=== PATIENT | male | born 1940 ===

== ENCOUNTER 2017-12-11 19:10 | Emergency (ER) | payer MEDICARE ==
[2017-12-11 21:42] LABS: BASO % 0.8 % (0.0-2.0); EOS # 0.4 K/uL (0.0-0.7); EOS % 4.9 % (0.0-4.0); HEMOGLOBIN 14.7 g/dL (12.0-18.0); LYMPH # 1.9 K/uL (1.0-4.3); LYMPH % 21.1 % (20.0-40.0); MEAN CELL VOLUME 84.4 fl (80.0-94.0); MEAN CORPUSCULAR HEMOGLOBIN 29.8 pg (27.0-31.0); MEAN CORPUSCULAR HGB CONC 35.3 g/dL (33.0-37.0); MONO # 0.7 K/uL (0.0-0.8); MONO % 8.4 % (0.0-10.0); NEUT # 5.7 K/uL (1.8-7.0); NEUT % 64.8 % (50.0-75.0); NRBC % 0.1 % (0.0-0.0); RBC 4.93 Mil/uL (4.40-5.90); RED CELL DISTRIBUTION WIDTH 14.1 % (11.5-14.5); WHITE BLOOD COUNT 8.8 K/uL (4.8-10.8)
[2017-12-11 21:43] LABS: BASO # 0.1 K/uL (0.0-0.2)
[2017-12-11 21:51] LABS: BLOOD UREA NITROGEN 13 mg/dl (9-20); CALCIUM 9.3 mg/dL (8.4-10.2); GFR AFRICAN-AMERICAN > 60; GFR NON-AFRICAN AMERICAN > 60
--- NOTE | 2017-12-11 22:00 | ED PDOC ---
HPI: Psych/Substance Abuse Time Seen by Provider: 12/11/17 19:43 Chief Complaint (Nursing): Psychiatric Evaluation ED Caveat: Dementia History Per: Patient Onset/Duration Of Symptoms: Days Current Symptoms Are (Timing): Still Present Associated Symptoms: Anger, Agitation Additional Complaint(s): Hx of dementia, CAD p/w aggressive behavior at home, according to grand-daughter , patient has been getting increasingly more aggressive at home with family members, attempted to strike his with a cane recently. Currently patient denies all complaints, states he feels well. Past Medical History Reviewed: Historical Data, Nursing Documentation Vital Signs: Last Vital Signs Temp 98.3 F 12/11/17 19:30 Pulse 54 L 12/11/17 19:30 Resp 19 12/11/17 19:30 BP 121/69 12/11/17 19:30 Pulse Ox 96 12/11/17 19:30 - Medical History PMH: Alzheimer's Disease, Dementia, Depression, HTN, Hypothyroidism - Surgical History Surgical History: Coronary Stent - Family History Family History: States: Unknown Family Hx - Allergies Allergies/Adverse Reactions: Allergies Allergy/AdvReac Type Severity Reaction Status Date / Time No Known Allergies Allergy Verified 12/11/17 19:33 Review of Systems Review Of Systems: ROS cannot be obtained secondary to pt's inabilty to answer questions. Physical Exam - Reviewed Nursing Documentation Reviewed: Yes Vital Signs Reviewed: Yes - Physical Exam Appears: Positive for: Well, Non-toxic, No Acute Distress Head Exam: Positive for: ATRAUMATIC, NORMAL INSPECTION, NORMOCEPHALIC Skin: Positive for: Normal Color, Warm, DRY Eye Exam: Positive for: EOMI, Normal appearance, PERRL ENT: Positive for: Normal ENT Inspection Neck: Positive for: Normal, Painless ROM Cardiovascular/Chest: Positive for: Regular Rate, Rhythm Respiratory: Positive for: CNT, Normal Breath Sounds Gastrointestinal/Abdominal: Positive for: Normal Exam, Bowel Sounds, Soft Back: Positive for: Normal Inspection Extremity: Positive for: Normal ROM Neurologic/Psych: Positive for: Alert, aquatic director II-XII, Oriented, Mood/Affect (Calm, cooperative). Negative for: Motor/Sensory Deficits, Aphasia - Laboratory Results Result Diagrams: 12/11/17 21:37 12/11/17 21:37 - ECG O2 Sat by Pulse Oximetry: 96 Medical Decision Making Medical Decision MakinPM A/P: Hx of Dementia, CAD p/w agitation/aggressive behavior at home -patient likely suffering from advanced dementia and behavior disturbance 2/2 to that -will get medical clearance and then Crisis Eval 1200AM Patient cleared by crisis, family will followup as outpatient. Medically stable. Disposition - Clinical Impression Clinical Impression: Dementia - Disposition Referrals: [facility] [Outside] Disposition Time: 00:49 Condition: STABLE Instructions: Dementia (Including Alzheimer Disease) Forms: [employer] (Arabic)
[2017-12-11] MEDS ORDERED: Risperidone M tab 1 MG PO ONE (23:52)
[2017-12-11] MEDS ORDERED: Risperidone M tab 0.5MG PO STA (23:52)
--- NOTE | 2017-12-12 09:18 | RAD ---
HISTORY: agitation COMPARISON: No prior. TECHNIQUE: Chest PA and lateral FINDINGS: LUNGS: No active pulmonary disease. PLEURA: No significant pleural effusion identified. No pneumothorax apparent. CARDIOVASCULAR: Normal. OSSEOUS STRUCTURES: No significant abnormalities. VISUALIZED UPPER ABDOMEN: Normal. OTHER FINDINGS: None. IMPRESSION: No active disease.
[2017-12-12 11:38] VITALS: BP 138/70; PULSE 69; RESP 16; TEMP 98.1; O2SAT 95
--- NOTE | 2017-12-12 18:35 | CARD ---
APPROVED REPORT EKG Measurement Heart [id number] <Conclusion> Sinus bradycardia Septal infarct, age undetermined T wave abnormality, consider lateral ischemia Abnormal ECG
== END 2017-12-12 01:07 | disposition home or self-care (01) ==
LOC: H.ER 19:10
DX: F02.81 Dementia in other diseases classified elsewhere, unspecified severity, with behavioral disturbance (principal); E03.9 Hypothyroidism, unspecified; G30.9 Alzheimer's disease, unspecified; I10 Essential (primary) hypertension; I25.10 Atherosclerotic heart disease of native coronary artery without angina pectoris; Z95.5 Presence of coronary angioplasty implant and graft
CPT/HCPCS: 71046; 80048; 85025; 93005; 99283; G0480

== ENCOUNTER 2017-12-14 19:48 | Inpatient (IN) | payer MEDICARE ==
--- NOTE | 2017-12-14 20:53 | ED PDOC ---
HPI: Psych/Substance Abuse Time Seen by Provider: 12/14/17 20:02 Chief Complaint (Nursing): Psychiatric Evaluation Chief Complaint (Provider): Aggressive Behaviour History Per: Family History/Exam Limitations: no limitations Suicide/Self Injury Attempted (Context): None Modifying Factor(s): None Additional Complaint(s): 77 year old male with a medical history of dementia is brought into the emergency department by his family for aggressive behavior. Patient history obtained from doctor and due to patient's history of dementia. reports that over the past month the patient has become increasingly aggressive with multiple episodes of aggression at home. She further states that he has also become violent with his cane and has attempted to scratch at family members. Per , the patient was seen by his private psychiatrist December 02 and was told that he should present to the emergency department for recommendation for psychiatric admission. Patient was seen here in [place] ED 3 days ago had an evaluation performed but could not be admitted because his family did not have the power of insurance defense attorney and her could not sign himself in for admission. Since then family has obtained power of insurance defense attorney. The states that since his last visit to the emergency room he has had multiple episodes of aggression and his behaviour has continued to get worse. PMD: Dr. Manny Weber Past Medical History Reviewed: Historical Data, Nursing Documentation, Vital Signs Vital Signs: Last Vital Signs Temp 97.6 F 12/14/17 19:55 Pulse 54 L 12/14/17 19:55 Resp 18 12/14/17 19:55 BP 158/103 H 12/14/17 19:55 Pulse Ox 99 12/14/17 19:55 - Medical History PMH: Alzheimer's Disease, Dementia, Depression, HTN, Hypothyroidism Denies: Diabetes, Hepatitis, HIV, Seizures, Sexually Transmitted Disease - Surgical History Surgical History: Coronary Stent - Family History Family History: States: Unknown Family Hx - Home Medications Home Medications: Ambulatory Orders Medication Instructions Recorded ALPRAZolam [Xanax] 0.25 mg PO HS PRN 12/14/17 Aspirin [Ecotrin] 325 mg PO DAILY 12/14/17 Atorvastatin [Lipitor] 80 mg PO DAILY 12/14/17 Cholecalciferol [Vitamin D] 2,000 iu PO DAILY 12/14/17 Clopidogrel [Plavix] 75 mg PO DAILY 12/14/17 Dicyclomine [Dicyclomine HCl] 10 mg PO TID 12/14/17 Donepezil [Aricept] 10 mg PO DAILY 12/14/17 Levothyroxine [Synthroid] 0.05 mg PO DAILY 12/14/17 Lisinopril/Hydrochlorothiazide 1 tab PO DAILY 12/14/17 [Lisinopril-Hctz 10-12.5 mg Tab] Metoprolol Tartrate [Lopressor] 25 mg PO BID 12/14/17 Risperidone [Risperdal M-TAB] 0.5 mg PO HS PRN 12/14/17 - Allergies Allergies/Adverse Reactions: Allergies Allergy/AdvReac Type Severity Reaction Status Date / Time No Known Allergies Allergy Verified 12/11/17 19:33 Review of Systems ROS Statement: Except As Marked, All Systems Reviewed And Found Negative Neurological: Positive for: Other (Aggressive Behaviour) Physical Exam - Reviewed Nursing Documentation Reviewed: Yes Vital Signs Reviewed: Yes - Physical Exam Appears: Positive for: Well, No Acute Distress Head Exam: Positive for: ATRAUMATIC, NORMOCEPHALIC Skin: Positive for: Warm, Dry Eye Exam: Positive for: EOMI, PERRL ENT: Positive for: Pharynx Is (clear) Neck: Positive for: Painless ROM, Supple Cardiovascular/Chest: Positive for: Regular Rate, Rhythm. Negative for: Murmur Respiratory: Positive for: Normal Breath Sounds. Negative for: Wheezing Gastrointestinal/Abdominal: Positive for: Soft. Negative for: Tenderness Back: Positive for: Normal Inspection. Negative for: Muscle Spasm Extremity: Positive for: Normal ROM. Negative for: Deformity Lymphatic: Negative for: Adenopathy Neurologic/Psych: Positive for: Oriented (x1), Mood/Affect (flat affect). Negative for: Motor/Sensory Deficits - Laboratory Results Result Diagrams: 12/14/17 22:10 12/14/17 22:10 - ECG O2 Sat by Pulse Oximetry: 99 (RA) Pulse Ox Interpretation: Normal Medical Decision Making Medical Decision Makin Initial Impression 77 year old male presenting with dementia with aggressive behaviour Initial Plan: * Crisis Evaluation * Reevaluation * * Per CHANTEL Luong [facility] * Medically stable for psychiatric admission Documented by Carli Dia acting as a scribe for Sada Shea MD. All medical record entries made by the Scribe were at my direction and personally dictated by me. I have reviewed the chart and agree that the record accurately reflects my personal performance of the history, physical exam, medical decision making, and the department course for this patient. I have also personally directed, reviewed, and agree with the discharge instructions and disposition. Disposition - Clinical Impression Clinical Impression: Dementia - Disposition Disposition Time: 22:00 Condition: STABLE - Pt Status Changed To: Hospital Disposition Of: Inpatient - Admit Certification Admit to Inpatient:: After my assessment, the patient will require hospitalization for at least two midnights. This is because of the severity of symptoms shown, intensity of services needed, and/or the medical risk in this patient being treated as an outpatient. - POA Present On Arrival: None
[2017-12-14 22:24] LABS: BASO # 0.1 K/uL (0.0-0.2); BASO % 0.7 % (0.0-2.0); EOS # 0.8 K/uL (0.0-0.7); EOS % 9.5 % (0.0-4.0); HEMOGLOBIN 14.6 g/dL (12.0-18.0); LYMPH # 1.6 K/uL (1.0-4.3); LYMPH % 18.7 % (20.0-40.0); MEAN CELL VOLUME 84.1 fl (80.0-94.0); MEAN CORPUSCULAR HEMOGLOBIN 29.3 pg (27.0-31.0); MEAN CORPUSCULAR HGB CONC 34.9 g/dL (33.0-37.0); MEAN PLATELET VOLUME 7.6 fl (7.2-11.7); MONO # 0.7 K/uL (0.0-0.8); MONO % 8.4 % (0.0-10.0); NEUT # 5.3 K/uL (1.8-7.0); NEUT % 62.7 % (50.0-75.0); NRBC % 0.1 % (0.0-0.0); RBC 4.96 Mil/uL (4.40-5.90); RED CELL DISTRIBUTION WIDTH 13.9 % (11.5-14.5); WHITE BLOOD COUNT 8.5 K/uL (4.8-10.8)
[2017-12-14 22:32] LABS: GFR AFRICAN-AMERICAN > 60; GFR NON-AFRICAN AMERICAN > 60
[2017-12-14 23:25] LABS: BLOOD UREA NITROGEN 13 mg/dl (9-20)
[2017-12-15 00:26] VITALS: O2SAT 96
[2017-12-15] MEDS ORDERED: Magnesium Hydroxide Susp 30 ml UD PO PRN (00:49)
[2017-12-15] MEDS ORDERED: Bismuth Subsalicylate 262 mg/15 ml Sus (240 ml) PO PRN (00:49)
[2017-12-15] MEDS ORDERED: Alum-Mag Hydrox-Simethicone Susp (30 mL) PO PRN (00:49)
--- NOTE | 2017-12-15 01:47 | PCM.BM ---
<Zelalem Cotto - Last Filed: 12/15/17 01:45> Treatment Plan Problems - Problems identified on initial assessmt Anger, Aggression and Violent Behaviors Date Initiated: 12/15/17 Time Initiated: 01:46 Assessment reference: NA Status: Active Treatment assets and liabiliti Patient Assests: good support system, negotiates basic needs Patient Liabilities: medical problems, imparied memory - Milieu Protocol Maintain good personal hygiene: every shift Encourage regular showers, every shift Remind patient to perform daily oral care, every shift Assist patient to perform ADL's Maintain personal safety: daily Educate patient to report safety concerns to staff, daily Monitor environment for contraband/sharps Medication safety: Monitor for expected outcome, potential side effects: daily, Assess barriers to learning: daily, Assess readiness for medication education: daily <Homa Aguilera - Last Filed: 12/16/17 09:38> - Diagnosis (1) Dementia with behavioral disturbance Status: Acute Interventions: Medication management, Individual and group therapy, Psychoeducation 12/16/17 09:38 <Bhargavi Amado - Last Filed: 12/16/17 12:35> Family Contact Family contact: Patient agrees to contact, Telephone contact initiated by staff , Family contacted unit to give information Family contact name: Gale Russ - spouse Family contacted how many times per week?: 2 Family contact comment: [phone] - Outside Agency Dr. Rebecca Crouch MD Care involvment: Information-sharing Agency contact number: - Goals for Treatment Patient goals for treatment: Pt to be encouraged to attend activity and clinical groups 3-5x per week to identify at least 2 contributing factors to increased agitation, irritability, and aggression. Psycho-education to be provided to patient/family regarding benefits of medications and treatment adherence. Pt to be encouraged to participate in group milieu to develop effective coping skills to reduce aggression and reduce psychiatric hospitalizations. Coordinate discharge resource needs by providing referral for psychiatric treatment follow up in the community. Discharge/Continuing Care - Education Needs Education Needs: Family Medication, Family Diagnosis/Disease Process, Family Coping Skills, Family Placement options, Family Community resources, Family Activities of Daily Living, Family Uses of Medical Equipment, Family Health Practices/Safety, Family Personal Hygiene/Grooming, Family Aftercare Safety Plan - Discharge Discharge Criteria: Tolerates medication w/o severe side effects, Free of agitation, Normal sleep pattern, Ability to care for self, Reduction of target symptoms Discharge to:: Home, With Family - Additional Comments 12/16/17 12:33 Pt discussed in team meeting. Pt unable to attend meeting. Pt observed to be asleep, not arousal at that time. Reason for admission reviewed and discussed. Pt's social and medical issues reviewed. Pt's medications reviewed and discussed. Pt's spouse, Gale Russ is POA. Commissions Specialist to contact spouse to review and discuss tx plan and also to obtain additional collateral information. SW to follow case. - Treatment Team Participation Discussed with Family/SO: No Was Patient/Family/SO present at Treatment Team Meeting: Yes
[2017-12-15 08:15] LABS: T4 8.64 ug/dl (5.5-11.0)
[2017-12-15 08:26] LABS: IRON 49 ug/dL (49-181)
[2017-12-15 08:35] LABS: % IRON SATURATION 18 % (20-55); TOTAL IRON BINDING CAPACITY 274 ug/dL (250-450)
[2017-12-15] MEDS: Levothyroxine 50 MCG TAB PO SCH (11:35)
[2017-12-15] MEDS: Aspirin 325 mg EC Tablets PO SCH (11:35)
[2017-12-15] MEDS: Cholecalciferol 1,000 INTLU TAB PO SCH (11:35)
[2017-12-15 13:05] LABS: FOLATE 8.1 ng/mL
--- NOTE | 2017-12-15 14:32 | PCM.PSYCH ---
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 Patient history obtained from doctor and due to patient's history of dementia. reports that over the past month the patient has become increasingly aggressive with multiple episodes of aggression at home. She further states that he has also become violent with his cane and has attempted to scratch at family members. Per , the patient was seen by his private psychiatrist December 02 and was told that he should present to the emergency department for recommendation for psychiatric admission. Patient was seen here in [place] ED 3 days ago had an evaluation performed but could not be admitted because his family did not have the power of civil rights attorney and her could not sign himself in for admission. Since then family has obtained power of civil rights attorney. The states that since his last visit to the emergency room he has had multiple episodes of aggression and his behaviour has continued to get worse. Current Medications: Active Medications Generic Name Dose Route Start Last Admin Trade Name Freq PRN Reason Stop Dose Admin Acetaminophen 650 mg 12/15/17 00:49 Tylenol 325mg Tab PO Q4 PRN Pain, moderate (4-7) Al Hydrox/Mg Hydrox/Simethicone 30 ml 12/15/17 00:49 Maalox Plus 30 Ml PO Q4 PRN Dyspepsia Aspirin 325 mg 12/15/17 11:15 12/15/17 11:35 Ecotrin PO 325 mg DAILY MARIA G Administration Atorvastatin Calcium 80 mg 12/15/17 22:00 Lipitor PO HS MARIA G Bismuth Subsalicylate 524 mg 12/15/17 00:49 Pepto-Bismol PO Q4 PRN Diarrhea Cholecalciferol 2,000 intlu 12/15/17 11:15 12/15/17 11:35 Vitamin D PO 2,000 intlu DAILY MARIA G Administration Clopidogrel Bisulfate 75 mg 12/15/17 11:15 12/15/17 11:35 Plavix PO 75 mg DAILY MARIA G Administration Donepezil HCl 10 mg 12/15/17 11:15 12/15/17 11:35 Aricept PO 10 mg DAILY MARIA G Administration Hydrochlorothiazide 12.5 mg 12/15/17 11:13 12/15/17 11:36 Microzide PO 12.5 mg DAILY MARIA G Administration Levothyroxine Sodium 50 mcg 12/15/17 11:15 12/15/17 11:35 Synthroid PO 50 mcg DAILY MARIA G Administration Lisinopril 10 mg 12/15/17 12:00 12/15/17 11:53 Zestril PO 10 mg DAILY MARIA G Administration Lorazepam 0.5 mg 12/15/17 00:49 Ativan PO 12/29/17 00:50 HS PRN Insomnia Lorazepam 0.5 mg 12/15/17 00:49 Ativan PO 12/29/17 00:50 Q6 PRN Anixety/Agitation Magnesium Hydroxide 30 ml 12/15/17 00:49 Milk Of Magnesia PO HS PRN Constipation Memantine 5 mg 12/15/17 22:00 Namenda PO HS MARIA G Metoprolol Tartrate 25 mg 12/15/17 17:00 Lopressor PO BID [facility] Risperidone 0.5 mg 12/15/17 22:00 Risperdal M-Tab PO HS [facility] Past Psychiatric History - Past Psychiatric History Nature of Treatment: seen in community History of ETOH/Drug Use: defers History of Family Illness: unknown Pertinent Medical Hx (Current Medical&Sleep Prob, Allergies): Allergies Allergy/AdvReac Type Severity Reaction Status Date / Time No Known Allergies Allergy Verified 12/11/17 19:33 ALPRAZolam [Xanax] 0.25 mg PO HS PRN 12/14/17 Aspirin [Ecotrin] 325 mg PO DAILY 12/14/17 Atorvastatin [Lipitor] 80 mg PO DAILY 12/14/17 Cholecalciferol [Vitamin D] 2,000 iu PO DAILY 12/14/17 Clopidogrel [Plavix] 75 mg PO DAILY 12/14/17 Dicyclomine [Dicyclomine HCl] 10 mg PO TID 12/14/17 Donepezil [Aricept] 10 mg PO DAILY 12/14/17 Levothyroxine [Synthroid] 0.05 mg PO DAILY 12/14/17 Lisinopril/Hydrochlorothiazide [Lisinopril-Hctz 10-12.5 mg Tab] 1 tab PO DAILY 12/14/17 Metoprolol Tartrate [Lopressor] 25 mg PO BID 12/14/17 Risperidone [Risperdal M-TAB] 0.5 mg PO HS PRN 12/14/17 Review of Systems - Psychiatric Psychiatric: Abnormal Sleep Pattern, Irritability Mental Status Examination - Affect Affect: Constricted, Depressed - Motor Activity Motor Activity: Calm, Psychomotor Retardation - Reliability in Providing Information Reliability in Providing Information: Poor, due to alteration in thoughts - Speech Additional comments: circumstantial - Cognitive Functions Orientation: Person Sensorium: Alert Attention/Concentration: Easily distracted Judgement: Imparied, as evidence by: Other - Risk Risk: Diminished functioning - Strength & Assets Inventory Strength & Assets Inventory: Family support (dementia changes in behavior) DSM 5 DX - DSM 5 DSM 5 Diagnosis: dementia with behavior changes - Recommended/Plan of Treatment Treatment Recommendations and Plan of Treatment: inpt adm per attending vital signs and clinical observation per protocol and per clinical status prns per unit protocol hospitalist consult start resperdal 0.5mg po hs fall precautions discharge planning in progress Projected ELOS: 5-7 days Prognosis: guarded Discharge Plan and Discharge Criteria: safety - Smoking Cessation Smoking Cessation Initiated: No Reason for not providing: pt defers
--- NOTE | 2017-12-15 15:01 | CARD ---
APPROVED REPORT EKG Measurement Heart [id number] <Conclusion> Sinus bradycardia with 1st degree AV block Septal infarct, age undetermined T wave abnormality, consider lateral ischemia Abnormal ECG
--- NOTE | 2017-12-15 19:56 | CP.PCM.CON ---
History of Present Illness - History of Present Illness History of Present Illness: 77 yo male with history of dementia admitted because of aggressive behaviour at home. Review of Systems - Review of Systems All systems: reviewed and no additional remarkable complaints except (aside from those mentioned above, 12 point system review were negative by me) Past Patient History - Past Social History Smoking Status: Former Smoker Alcohol: None Drugs: Denies Home Situation {Lives}: With Family - CARDIAC Hx Cardiac Disorders: Yes - PULMONARY Hx Respiratory Disorders: No - NEUROLOGICAL Hx Neurological Disorder: No - HEENT Hx HEENT Problems: No - RENAL Hx Chronic Kidney Disease: No - ENDOCRINE/METABOLIC Hx Endocrine Disorders: Yes - HEMATOLOGICAL/ONCOLOGICAL Hx Blood Disorders: No - INTEGUMENTARY Hx Dermatological Problems: No - MUSCULOSKELETAL/RHEUMATOLOGICAL Hx Musculoskeletal Disorders: No Hx Falls: Yes (2days ago) - GENITOURINARY/GYNECOLOGICAL Hx Genitourinary Disorders: No - PSYCHIATRIC Hx Substance Use: No - SURGICAL HISTORY Hx Coronary Stent: Yes - ANESTHESIA Hx Anesthesia: Yes Hx Anesthesia Reactions: No Meds Allergies/Adverse Reactions: Allergies Allergy/AdvReac Type Severity Reaction Status Date / Time No Known Allergies Allergy Verified 12/11/17 19:33 - Medications Medications: Current Medications Acetaminophen (Tylenol 325mg Tab) 650 mg PO Q4 PRN PRN Reason: Pain, moderate (4-7) Al Hydrox/Mg Hydrox/Simethicone (Maalox Plus 30 Ml) 30 ml PO Q4 PRN PRN Reason: Dyspepsia Aspirin (Ecotrin) 325 mg PO DAILY [facility] Last Admin: 12/15/17 11:35 Dose: 325 mg Atorvastatin Calcium (Lipitor) 80 mg PO [facility] Bismuth Subsalicylate (Pepto-Bismol) 524 mg PO Q4 PRN PRN Reason: Diarrhea Cholecalciferol (Vitamin D) 2,000 intlu PO DAILY [facility] Last Admin: 12/15/17 11:35 Dose: 2,000 intlu Clopidogrel Bisulfate (Plavix) 75 mg PO DAILY [facility] Last Admin: 12/15/17 11:35 Dose: 75 mg Donepezil HCl (Aricept) 10 mg PO DAILY [facility] Last Admin: 12/15/17 11:35 Dose: 10 mg Hydrochlorothiazide (Microzide) 12.5 mg PO DAILY [facility] Last Admin: 12/15/17 11:36 Dose: 12.5 mg Levothyroxine Sodium (Synthroid) 50 mcg PO DAILY [facility] Last Admin: 12/15/17 11:35 Dose: 50 mcg Lisinopril (Zestril) 10 mg PO DAILY [facility] Last Admin: 12/15/17 11:53 Dose: 10 mg Lorazepam (Ativan) 0.5 mg PO HS PRN PRN Reason: Insomnia Stop: 12/29/17 00:50 Lorazepam (Ativan) 0.5 mg PO Q6 PRN PRN Reason: Anixety/Agitation Stop: 12/29/17 00:50 Magnesium Hydroxide (Milk Of Magnesia) 30 ml PO HS PRN PRN Reason: Constipation Memantine (Namenda) 5 mg PO HS [facility] Metoprolol Tartrate (Lopressor) 25 mg PO BID [facility] Last Admin: 12/15/17 16:51 Dose: 25 mg Risperidone (Risperdal M-Tab) 0.5 mg PO [facility] Physical Exam - Constitutional Appears: Other (tremelous) - Head Exam Head Exam: ATRAUMATIC - Eye Exam Eye Exam: absent: Scleral icterus - ENT Exam ENT Exam: Mucous Membranes Moist - Neck Exam Neck exam: Negative for: Meningismus - Respiratory Exam Respiratory Exam: absent: Rales, Rhonchi, Wheezes, Respiratory Distress - Cardiovascular Exam Cardiovascular Exam: REGULAR RHYTHM, +S1, +S2 - GI/Abdominal Exam GI & Abdominal Exam: Soft. absent: Tenderness - Rectal Exam Rectal Exam: Deferred - Back Exam Back exam: NORMAL INSPECTION - Neurological Exam Neurological exam: Altered (confused) - Psychiatric Exam Psychiatric exam: Flat Affect - Skin Skin Exam: Dry, Intact Results - Vital Signs Recent Vital Signs: Last Vital Signs Temp 97.4 F L 12/15/17 16:38 Pulse 67 12/15/17 16:51 Resp 18 12/15/17 16:38 BP 164/86 H 12/15/17 16:51 Pulse Ox 96 12/15/17 00:26 - Labs Result Diagrams: 12/14/17 22:10 12/14/17 22:10 Labs: Laboratory Results - last 24 hr 12/14/17 12/14/17 12/15/17 22:10 22:10 06:00 WBC 8.5 RBC 4.96 Hgb 14.6 Hct 41.7 MCV 84.1 MCH 29.3 MCHC 34.9 RDW 13.9 Plt Count 125 L D MPV 7.6 Neut % (Auto) 62.7 Lymph % (Auto) 18.7 L [place] % (Auto) 8.4 Eos % (Auto) 9.5 H Baso % (Auto) 0.7 Neut # (Auto) 5.3 Lymph # (Auto) 1.6 [place] # (Auto) 0.7 Eos # (Auto) 0.8 H Baso # (Auto) 0.1 Sodium 131 L Potassium 4.1 Chloride 95 L Carbon Dioxide 25 Anion Gap 15 BUN 13 Creatinine 0.7 L Est GFR ( Amer) > 60 Est GFR (Non-Af Amer) > 60 Random Glucose 101 Calcium 9.0 Phosphorus 3.4 Magnesium 2.1 Iron TIBC % Saturation Ferritin 78.0 Triglycerides 91 Cholesterol 118 LDL Cholesterol Direct 40 HDL Cholesterol 51 Vitamin B12 215 L Folate 8.1 Free T4 Thyroxine (T4) 8.64 TSH 3rd Generation 1.72 1.87 12/15/17 12/15/17 06:00 06:00 WBC RBC Hgb Hct MCV MCH MCHC RDW Plt Count MPV Neut % (Auto) Lymph % (Auto) [place] % (Auto) Eos % (Auto) Baso % (Auto) Neut # (Auto) Lymph # (Auto) [place] # (Auto) Eos # (Auto) Baso # (Auto) Sodium Potassium Chloride Carbon Dioxide Anion Gap BUN Creatinine Est GFR ( Amer) Est GFR (Non-Af Amer) Random Glucose Calcium Phosphorus Magnesium Iron 49 TIBC 274 % Saturation 18 L Ferritin Triglycerides Cholesterol LDL Cholesterol Direct HDL Cholesterol Vitamin B12 Folate Free T4 1.24 Thyroxine (T4) TSH 3rd Generation Assessment & Plan (1) Aggressive behavior Status: Acute Comment: psyche is managing
[2017-12-15] MEDS: Risperidone M tab 0.5MG PO SCH (21:04)
[2017-12-15 23:02] LABS: URINE BILIRUBIN NEGATIVE (NEGATIVE); URINE BLOOD NEGATIVE (NEGATIVE); URINE CLARITY CLEAR (Clear); URINE COLOR YELLOW (YELLOW); URINE GLUCOSE (UA) 50 mg/dL (Normal); URINE LEUKOCYTE ESTERASE NEG Leu/uL (Negative); URINE PROTEIN NEGATIVE (NEGATIVE); URINE UROBILINOGEN 0.2-1.0 mg/dL (0.2-1.0)
[2017-12-16 06:58] LABS: BASO % 0.6 % (0.0-2.0); EOS # 0.5 K/uL (0.0-0.7); EOS % 7.9 % (0.0-4.0); HEMOGLOBIN 13.9 g/dL (12.0-18.0); LYMPH # 1.2 K/uL (1.0-4.3); LYMPH % 18.1 % (20.0-40.0); MEAN CELL VOLUME 83.4 fl (80.0-94.0); MEAN CORPUSCULAR HEMOGLOBIN 29.5 pg (27.0-31.0); MEAN CORPUSCULAR HGB CONC 35.4 g/dL (33.0-37.0); MEAN PLATELET VOLUME 7.3 fl (7.2-11.7); MONO # 0.6 K/uL (0.0-0.8); NEUT # 4.1 K/uL (1.8-7.0); NEUT % 63.4 % (50.0-75.0); NRBC % 0.1 % (0.0-0.0); RBC 4.72 Mil/uL (4.40-5.90); RED CELL DISTRIBUTION WIDTH 13.9 % (11.5-14.5); WHITE BLOOD COUNT 6.5 K/uL (4.8-10.8)
[2017-12-16] MEDS: Aspirin 325 mg EC Tablets PO SCH (10:47)
[2017-12-16] MEDS: Levothyroxine 50 MCG TAB PO SCH (10:51)
[2017-12-16] MEDS: Cholecalciferol 1,000 INTLU TAB PO SCH (10:52)
--- NOTE | 2017-12-16 13:07 | PCM.PYCHPN ---
Psychiatric Progress Note - Psychiatric Progress Note Patient seen today, length of contact: Patient evaluated, case discussed with team, chart reviewed Patient Chief Complaint: "I'm okay" Problems Identified/Issues Discussed: Patient continues to be disoriented as per his baseline dementia. He is currently calm and cooperative w/o any acute complaints. He denies depression/ anxiety. He is not currently violent or aggressive. As per patient's , the patient is intermittently violent and aggressive. She gave the medical team to modify the patient's medications as medically and psychiatrically indicated. Medication Change: Yes (Increase Risperdal) Medical Record Reviewed: Yes Consults ordered or reviewed: Medicine consult Mental Status Examination - Cognitive Function Orientation: Person Memory: Impaired Attention: Poor Concentration: Poor Association: Loose Fund of Knowledge: Poor Decription of patient's judgement and insights: Poor I/J due to chronic dementia - Mood Mood: Neutral - Affect Affect: Constricted - Speech Speech: Appropriate - Formal Thought Process Formal Thought Process: Loosening of associations Psychotic Thoughts and Behaviors: Denied acute AH/VH/paranoia - Suicidal Ideation Suicidal Ideation: No - Homicidal Ideation Homicidal Ideation: No Goal/Treatment Plan - Goal/Treatment Plan Need for Continued Stay: Severe functional impairment Progress Toward Problem(s) and Goals/Treatment Plan: Dementia with behavioral disturbances -Continue Aricept -Increase Namenda and Risperdal -Continue 1:1 for safety -Individual and group therapy -Psychoeducation -Collateral history obtained from 's -PT screening -Medicine consult -Disposition planning Estimated Date of D/C: 12/20/17 - Smoking Cessation Smoking Cessation Initiated: No Reason for not providing: Not indicated
[2017-12-16] MEDS ORDERED: RISPERIDONE 0.25 MG ODT PO SCH (17:00)
[2017-12-16] MEDS: Risperidone M tab 0.5MG PO SCH (21:08)
--- NOTE | 2017-12-17 09:34 | PCM.PYCHPN ---
Psychiatric Progress Note - Psychiatric Progress Note Patient seen today, length of contact: Patient evaluated, case discussed with team, chart reviewed Patient Chief Complaint: "I'm okay" Problems Identified/Issues Discussed: Patient had periods of agitation yesterday and was observed banging his walker in anger and gesturing as if he wants to hit others. Patient continues to be disoriented as per his baseline dementia. Patient has poor insight and judgment due to chronic dementia. Medication Change: Yes (Increase Risperdal) Medical Record Reviewed: Yes Consults ordered or reviewed: Medicine consult Mental Status Examination - Cognitive Function Orientation: Person Memory: Impaired Attention: Poor Concentration: Poor Association: Loose Fund of Knowledge: Poor Decription of patient's judgement and insights: Poor I/J due to chronic dementia - Mood Mood: Neutral - Affect Affect: Constricted - Speech Speech: Appropriate - Formal Thought Process Formal Thought Process: Loosening of associations Psychotic Thoughts and Behaviors: Denied acute AH/VH/paranoia - Suicidal Ideation Suicidal Ideation: No - Homicidal Ideation Homicidal Ideation: No Goal/Treatment Plan - Goal/Treatment Plan Need for Continued Stay: Severe functional impairment Progress Toward Problem(s) and Goals/Treatment Plan: Dementia with behavioral disturbances -Continue Aricept and Namenda -Increase Risperdal -Continue 1:1 for safety -Individual and group therapy -Psychoeducation -Collateral history obtained from 's -PT/OT -Medicine consult -Disposition planning Estimated Date of D/C: 12/20/17
[2017-12-17] MEDS: Cholecalciferol 1,000 INTLU TAB PO SCH (09:58)
[2017-12-17] MEDS: Levothyroxine 50 MCG TAB PO SCH (09:58)
[2017-12-17] MEDS: Aspirin 325 mg EC Tablets PO SCH (10:00)
[2017-12-17] MEDS ORDERED: Aspirin 325 mg EC Tablets PO SCH (14:13)
[2017-12-17] MEDS: Pantoprazole 40 mg EC Tab PO SCH (15:11)
[2017-12-17] MEDS: Risperidone M tab 0.5MG PO SCH ×2 (16:15→21:31)
[2017-12-17 20:27] LABS: BLOOD UREA NITROGEN 19 mg/dl (9-20); CALCIUM 9.1 mg/dL (8.4-10.2); GFR AFRICAN-AMERICAN > 60; GFR NON-AFRICAN AMERICAN > 60
[2017-12-17] MEDS: Sodium Chloride 0.9% 1,000 ML IV SCH (21:30)
[2017-12-18 07:01] LABS: BLOOD UREA NITROGEN 21 mg/dl (9-20); CALCIUM 8.6 mg/dL (8.4-10.2); GFR AFRICAN-AMERICAN > 60; GFR NON-AFRICAN AMERICAN > 60
[2017-12-18] MEDS: Levothyroxine 50 MCG TAB PO SCH (08:37)
[2017-12-18] MEDS: Pantoprazole 40 mg EC Tab PO SCH (08:37)
[2017-12-18] MEDS: Cholecalciferol 1,000 INTLU TAB PO SCH (08:37)
[2017-12-18] MEDS: Sodium Chloride 0.9% 1,000 ML IV SCH (09:00)
--- NOTE | 2017-12-18 09:20 | PCM.PYCHPN ---
Psychiatric Progress Note - Psychiatric Progress Note Patient seen today, length of contact: Patient evaluated, case discussed with team, chart reviewed Patient Chief Complaint: "I'm okay" Problems Identified/Issues Discussed: Patient did not have any periods of agitation or aggression yesterday. Patient continues to be disoriented as per his baseline dementia. Patient has poor insight and judgment due to chronic dementia. Medication Change: No Medical Record Reviewed: Yes Consults ordered or reviewed: Medicine consult, Physical Therapy Mental Status Examination - Cognitive Function Orientation: Person Memory: Impaired Attention: Poor Concentration: Poor Association: Loose Fund of Knowledge: Poor Decription of patient's judgement and insights: Poor I/J due to chronic dementia - Mood Mood: Neutral - Affect Affect: Constricted - Speech Speech: Appropriate - Formal Thought Process Formal Thought Process: Loosening of associations Psychotic Thoughts and Behaviors: Denied acute AH/VH/paranoia - Suicidal Ideation Suicidal Ideation: No - Homicidal Ideation Homicidal Ideation: No Goal/Treatment Plan - Goal/Treatment Plan Need for Continued Stay: Severe functional impairment Progress Toward Problem(s) and Goals/Treatment Plan: Dementia with behavioral disturbances -Continue Aricept and Namenda -Continue Risperdal -Continue 1:1 for safety -Individual and group therapy -Psychoeducation -Collateral history obtained from 's -PT/OT -Medicine consult -Disposition planning Estimated Date of D/C: 12/20/17
[2017-12-18] MEDS ORDERED: Sodium Chloride 0.9% 1,000 ML IV SCH (10:15)
[2017-12-18] MEDS: Risperidone M tab 0.5MG PO SCH ×2 (18:50→21:09)
[2017-12-19 08:23] LABS: ALB/GLOB RATIO 1.3 (1.0-2.1); ALBUMIN 4.1 g/dL (3.5-5.0); ALT/SGPT 43 U/L (21-72); AST/SGOT 34 U/L (17-59); BLOOD UREA NITROGEN 10 mg/dl (9-20); CALCIUM 9.3 mg/dL (8.4-10.2); GFR AFRICAN-AMERICAN > 60; GFR NON-AFRICAN AMERICAN > 60
[2017-12-19] MEDS: Pantoprazole 40 mg EC Tab PO SCH (08:52)
[2017-12-19] MEDS: Levothyroxine 50 MCG TAB PO SCH (08:53)
[2017-12-19] MEDS: Cholecalciferol 1,000 INTLU TAB PO SCH (08:55)
--- NOTE | 2017-12-19 09:35 | PCM.PYCHPN ---
Psychiatric Progress Note - Psychiatric Progress Note Patient seen today, length of contact: Patient evaluated, case discussed with team, chart reviewed Patient Chief Complaint: "I'm okay" Problems Identified/Issues Discussed: Patient became agitated overnight due to wanting to go home and required PRN medication. . He becomes agitated at times when he is told he can not do something he wants to go, but is otherwise in good behavioral control. 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 Patient continues to be disoriented as per his baseline dementia. Patient has poor insight and judgment due to chronic dementia. Medication Change: Yes (Increase Risperdal) Medical Record Reviewed: Yes Consults ordered or reviewed: Medicine consult, Physical Therapy Mental Status Examination - Cognitive Function Orientation: Person Memory: Impaired Attention: Poor Concentration: Poor Association: Loose Fund of Knowledge: Poor Decription of patient's judgement and insights: Poor I/J due to chronic dementia - Mood Mood: Neutral - Affect Affect: Constricted - Speech Speech: Appropriate - Formal Thought Process Formal Thought Process: Loosening of associations Psychotic Thoughts and Behaviors: Denied acute AH/VH/paranoia - Suicidal Ideation Suicidal Ideation: No - Homicidal Ideation Homicidal Ideation: No Goal/Treatment Plan - Goal/Treatment Plan Need for Continued Stay: Severe functional impairment Progress Toward Problem(s) and Goals/Treatment Plan: Dementia with behavioral disturbances -Continue Aricept and Namenda -Increase Risperdal -Continue 1:1 for safety -Individual and group therapy -Psychoeducation -Collateral history obtained from 's -PT/OT -Medicine consult -Disposition planning Estimated Date of D/C: 12/21/17
[2017-12-20] MEDS: Pantoprazole 40 mg EC Tab PO SCH (09:08)
[2017-12-20] MEDS: Cholecalciferol 1,000 INTLU TAB PO SCH (09:09)
[2017-12-20] MEDS: Levothyroxine 50 MCG TAB PO SCH (09:09)
--- NOTE | 2017-12-20 09:18 | PCM.PYCHPN ---
Psychiatric Progress Note - Psychiatric Progress Note Patient seen today, length of contact: Patient evaluated, case discussed with team, chart reviewed Patient Chief Complaint: "I'm okay" Problems Identified/Issues Discussed: No periods of agitation or aggression yesterday. Case discussed w/ patient's family. Will likely discharge to home tomorrow under the care of his family. Patient continues to be disoriented as per his baseline dementia. Patient has poor insight and judgment due to chronic dementia. Medication Change: No Medical Record Reviewed: Yes Consults ordered or reviewed: Medicine consult, Physical Therapy Mental Status Examination - Cognitive Function Orientation: Person Memory: Impaired Attention: Poor Concentration: Poor Association: Loose Fund of Knowledge: Poor Decription of patient's judgement and insights: Poor I/J due to chronic dementia - Mood Mood: Neutral - Affect Affect: Broad - Speech Speech: Appropriate - Formal Thought Process Formal Thought Process: Loosening of associations Psychotic Thoughts and Behaviors: Denied acute AH/VH/paranoia - Suicidal Ideation Suicidal Ideation: No - Homicidal Ideation Homicidal Ideation: No Goal/Treatment Plan - Goal/Treatment Plan Need for Continued Stay: Severe functional impairment Progress Toward Problem(s) and Goals/Treatment Plan: Dementia with behavioral disturbances -Continue Aricept and Namenda -Continue Risperdal -Discontinue 1:1 -Individual and group therapy -Psychoeducation -PT/OT -Medicine consult -Disposition planning- likely discharge to home tomorrow under the care of his family Estimated Date of D/C: 12/21/17
[2017-12-20 15:40] VITALS: RESP 18
[2017-12-21 05:46] VITALS: BP 156/71; PULSE 67; TEMP 97.1
[2017-12-21] MEDS: Cholecalciferol 1,000 INTLU TAB PO SCH (08:16)
[2017-12-21] MEDS: Levothyroxine 50 MCG TAB PO SCH (08:16)
[2017-12-21] MEDS: Pantoprazole 40 mg EC Tab PO SCH (08:17)
--- NOTE | 2017-12-21 08:30 | PCM.PYCHDC ---
Mental Status Examination - Mental Status Examination Orientation: Person Memory: Impaired Mood: Neutral Affect: Broad Speech: Appropriate Attention: Poor Concentration: Poor Association: Loose Fund of Knowledge: Poor Formal Thought Process: Loosening of associations (Due to chronic dementia) Description of patient's judgement and insight: Poor I/J due to chronic dementia Psychotic Thoughts and Behaviors: Denied acute AH/VH/paranoia Suicidal Ideation: No Current Homicidal Ideation?: No Discharge Summary - Discharge Note Reason for Hospitalization: As per initial HPI note: 77 year old male with a medical history of dementia is brought into the emergency department by his family for aggressive behavior. Patient history obtained from doctor and due to patient's history of dementia. reports that over the past month the patient has become increasingly aggressive with multiple episodes of aggression at home. She further states that he has also become violent with his cane and has attempted to scratch at family members. Per , the patient was seen by his private psychiatrist December 02 and was told that he should present to the emergency department for recommendation for psychiatric admission. Patient was seen here in [place] ED 3 days ago had an evaluation performed but could not be admitted because his family did not have the power of trademark attorney and her could not sign himself in for admission. Since then family has obtained power of trademark attorney. The states that since his last visit to the emergency room he has had multiple episodes of aggression and his behaviour has continued to get worse. Psychiatric History (includes Medical, Family, Personal Hx): seen in community Consultations:: List each consultation separately and include: 1. Reason for request. 2. Findings. 3. Follow-up Consultations: Medicine consult, Physical Therapy Summary of Hospital Course include:: 1. Description of specific treatment plan utilized for patients during their course of treatmen. 2. Summarize the time- course for resolution of acute symptoms and/or regressed behaviors. 3. Describe issues identified and worked on during hospitalization. 4. Describe medication utilized. 5. Describe medical problems identified and treated. 6. Reassessment of suicide risk Summary of Hospital Course: Patient was admitted to the geriatric psychiatry unit. Individual and group therapy were provided. Patient was stabilized on Risperal 0.5 mg PO Daily@1700 / 1 mg PO HS, Aricept 10 mg PO HS and Namenda 5 mg PO BID. He no longer has behavioral disturbances. Psychoeducation provided to the family. Patient is psychiatrically stable for discharge with outpatient follow-up. - Diagnosis (1) Dementia with behavioral disturbance Current Visit: Yes Status: Chronic - Final Diagnosis (DSM 5) Condition upon Discharge: STABLE DSM 5: Dementia with behavioral disturbance Disposition: HOME/ ROUTINE Follow-up Treatment Plan: Dementia with behavioral disturbances -Continue Aricept and Namenda -Continue Risperdal -Individual and group therapy -Psychoeducation -PT/OT -Medicine consult -Disposition planning- Discharge under the care of his family Prescriptions/Medication Reconciliation: Donepezil HCl [Aricept] 10 mg PO HS #30 tab Memantine [Namenda] 5 mg PO BID #60 tab Pantoprazole [Protonix EC Tab] 40 mg PO DAILY #30 ect risperiDONE [RisperDAL Tab] 0.5 mg PO ASDIR #90 tab - Smoking Cessation Smoking Cessation Medication prescribed: No Reason for not providing: Not indicated - Antipsychotic Medications Pt discharged on 2 or more routine antipsychotic medications: No
== END 2017-12-21 14:00 | disposition home or self-care (01) | DRG 57 ==
LOC: H.ER 19:48 → H.ERHOLD 22:35 → H.STEP 12-15 00:37
PROVIDERS: ADMIT Psychiatry & Neurology Psychiatry; ATTEND Psychiatry & Neurology Psychiatry
PROC: GZHZZZZ Group Psychotherapy (ICD-10-PCS; principal; 2017-12-14)
DX: G30.9 Alzheimer's disease, unspecified (principal); F02.81 Dementia in other diseases classified elsewhere, unspecified severity, with behavioral disturbance; E03.9 Hypothyroidism, unspecified; I10 Essential (primary) hypertension; F32.9 Major depressive disorder, single episode, unspecified; Z87.891 Personal history of nicotine dependence